=== PATIENT | female | born 1955 | race Caucasian/White ===

== ENCOUNTER 2021-12-24 21:18 | Observation (INO) ==
[2021-12-24 23:54] LABS: Basophils % 0.2 %; Eosinophils # 0.1 K/mcL (0.0-0.6); Eosinophils % 1.1 %; Hematocrit 31.1 % (35.3-44.9); Hemoglobin 9.9 g/dL (11.5-15.4); Immature Granulocytes % 0.2 % (0-4); Lymphocytes % 11.8 %; Mean Corpuscular HGB Conc 31.8 g/dL (31.6-35.5); Mean Corpuscular Hemoglobin 31.2 pg (28.0-33.3); Mean Corpuscular Volume 98.1 fL (83.0-100.0); Mean Platelet Volume 10.1 fL (9.4-12.4); Monocytes # 0.8 K/mcL (0.0-1.3); Monocytes % 9.6 %; Neutrophils # 6.3 K/mcL (1.6-8.9); Platelet Count 254 K/mcL (140-400); Red Blood Count 3.17 M/mcL (3.82-4.97); Red Cell Distribution Width 15.9 % (11.5-14.5); Segmented Neutrophils % 77.1 %; White Blood Count 8.2 K/mcL (4.3-11.1)
[2021-12-25 00:12] LABS: Calcium 10.5 mg/dL (8.6-10.3); Potassium 3.8 mEq/L (3.5-5.1)
[2021-12-25] MEDS ORDERED: Ondansetron ODT 4 MG TAB.RAPDIS SL PRN (00:58)
[2021-12-25] MEDS ORDERED: Naloxone 0.4 MG/ML INJ IVP PRN (00:58)
[2021-12-25] MEDS ORDERED: Acetaminophen 325 MG TABLET PO PRN (00:58)
[2021-12-25] MEDS ORDERED: Melatonin 3 MG TABLET PO PRN (00:58)
[2021-12-25] MEDS ORDERED: Morphine Sulfate 2 MG/ML SYRINGE IVP ONE (01:21)
[2021-12-25] MEDS ORDERED: D5% in Water 1,000 ML IVC PRN (01:21)
[2021-12-25] MEDS ORDERED: *HR* Dextrose 50 % in Water (Syg) 50 ML SYRINGE IVP PRN (01:21)
[2021-12-25] MEDS ORDERED: Dextrose Gel 15 GM/37.5 ML TUBE PO PRN ×2 (01:21)
[2021-12-25] MEDS: *HR* OxyCODONE Immed Rel 5 MG TABLET PO PRN ×3 (02:38→16:38)
[2021-12-25 07:51] LABS: Calcium 10.5 mg/dL (8.6-10.3); Magnesium 2.2 mg/dL (1.6-2.6); Phosphorous 3.4 mg/dL (2.7-4.5); Potassium 3.5 mEq/L (3.5-5.1)
[2021-12-25] MEDS: Insulin LISPRO 300 UNITS/3 ML VIAL SUBQ SCH ×4 (08:12→20:29)
[2021-12-25 11:27] LABS: Hematocrit 29.8 % (35.3-44.9); Hemoglobin 9.4 g/dL (11.5-15.4); Mean Corpuscular HGB Conc 31.5 g/dL (31.6-35.5); Mean Corpuscular Volume 98.3 fL (83.0-100.0); Mean Platelet Volume 9.9 fL (9.4-12.4); Platelet Count 228 K/mcL (140-400); Red Blood Count 3.03 M/mcL (3.82-4.97); Red Cell Distribution Width 15.8 % (11.5-14.5); White Blood Count 7.3 K/mcL (4.3-11.1)
[2021-12-25] MEDS: *HR* HYDROcodone/Acet 5/325 mg TABLET PO PRN (12:45)
[2021-12-25] MEDS: Gabapentin 300 MG CAPSULE PO SCH ×2 (16:38→20:34)
[2021-12-25] MEDS: Insulin DETEMIR 100 UNIT/ML X5UNITS SUBQ SCH (20:34)
[2021-12-26] MEDS: *HR* OxyCODONE Immed Rel 5 MG TABLET PO PRN ×3 (03:10→21:54)
[2021-12-26] MEDS ORDERED: MethylPREDNISolone Acet(DEPOT) 40 MG/ML VIAL INTRAART ONE (08:21)
[2021-12-26] MEDS: Gabapentin 300 MG CAPSULE PO SCH ×2 (09:00→21:54)
[2021-12-26] MEDS: Insulin LISPRO 300 UNITS/3 ML VIAL SUBQ SCH ×4 (09:01→21:55)
[2021-12-26] MEDS ORDERED: Lidocaine -MPF 0.5% 50 ML VIAL ONE (11:52)
[2021-12-26] MEDS ORDERED: carvediloL 6.25 MG TABLET PO SCH (12:45)
[2021-12-26] MEDS: carvediloL 6.25 MG TABLET PO SCH (13:51)
[2021-12-26] MEDS: Furosemide 40 MG TABLET PO SCH (17:17)
[2021-12-26] MEDS: Insulin DETEMIR 100 UNIT/ML X5UNITS SUBQ SCH (21:56)
[2021-12-27] MEDS: carvediloL 6.25 MG TABLET PO SCH ×2 (08:11→15:26)
[2021-12-27] MEDS: Gabapentin 300 MG CAPSULE PO SCH ×2 (08:11→21:31)
[2021-12-27] MEDS: Insulin LISPRO 300 UNITS/3 ML VIAL SUBQ SCH ×4 (08:12→21:38)
[2021-12-27] MEDS ORDERED: Furosemide 40 MG TABLET PO SCH (09:00)
[2021-12-27 12:08] LABS: Estimated Average Glucose 131 mg/dl; Hemoglobin A1C 6.2 %
[2021-12-27] MEDS: *HR* HYDROcodone/Acet 5/325 mg TABLET PO PRN (15:26)
[2021-12-27] MEDS: Furosemide 40 MG TABLET PO SCH (18:20)
[2021-12-27 19:50] VITALS: BP 134/75; PULSE 64; TEMP 98.5; O2SAT 96
[2021-12-27] MEDS: Insulin DETEMIR 100 UNIT/ML X5UNITS SUBQ SCH (21:32)
[2021-12-27] MEDS ORDERED: Gabapentin 300 MG CAPSULE PO ONE (23:58)
== END 2021-12-27 23:59 | disposition other institution (70) ==
LOC: EMEROOARM 21:18 → 3BNU 21:18 → SUATTDRO 12-25 01:03 → 3BNU 12-25 01:36
PROVIDERS: ADMIT Internal Medicine; ATTEND Registered Nurse